=== PATIENT | female | born 1985 | race Caucasian/White ===

== ENCOUNTER → 2023-06-21 07:33 | Outpatient (REF) | payer OTHER, SELFPAY | LOC: PNTC 07:33 | PROVIDERS: ATTENDING PHYSICIAN Obstetrics & Gynecology | DX: O99.210 Obesity complicating pregnancy, unspecified trimester (principal); O09.529 Supervision of elderly multigravida, unspecified trimester | CPT/HCPCS: 76816 ==

== ENCOUNTER → 2023-07-13 11:25 | Outpatient (REF) | payer OTHER, SELFPAY | LOC: PNTC 11:25 | PROVIDERS: ATTENDING PHYSICIAN Obstetrics & Gynecology | DX: O99.210 Obesity complicating pregnancy, unspecified trimester (principal); O09.529 Supervision of elderly multigravida, unspecified trimester | CPT/HCPCS: 59025; 76815 ==

== ENCOUNTER → 2023-07-20 11:31 | Outpatient (REF) | payer OTHER, SELFPAY | LOC: PNTC 11:31 | PROVIDERS: ATTENDING PHYSICIAN Obstetrics & Gynecology | DX: O99.210 Obesity complicating pregnancy, unspecified trimester (principal); O09.529 Supervision of elderly multigravida, unspecified trimester | CPT/HCPCS: 59025; 76816 ==

== ENCOUNTER → 2023-07-27 11:26 | Outpatient (REF) | payer OTHER, SELFPAY | LOC: PNTC 11:26 | PROVIDERS: ATTENDING PHYSICIAN Obstetrics & Gynecology | DX: O09.529 Supervision of elderly multigravida, unspecified trimester (principal); O99.210 Obesity complicating pregnancy, unspecified trimester | CPT/HCPCS: 59025; 76815 ==

== ENCOUNTER → 2023-08-03 11:19 | Outpatient (REF) | payer OTHER, SELFPAY | LOC: PNTC 11:19 | PROVIDERS: ATTENDING PHYSICIAN Obstetrics & Gynecology | DX: O09.529 Supervision of elderly multigravida, unspecified trimester (principal); O99.210 Obesity complicating pregnancy, unspecified trimester | CPT/HCPCS: 59025; 76815 ==

== ENCOUNTER → 2023-08-10 11:42 | Outpatient (REF) | payer OTHER, SELFPAY | LOC: PNTC 11:42 | PROVIDERS: ATTENDING PHYSICIAN Obstetrics & Gynecology | DX: O99.210 Obesity complicating pregnancy, unspecified trimester (principal) | CPT/HCPCS: 59025; 76815 ==

== ENCOUNTER → 2023-08-17 11:35 | Outpatient (REF) | payer OTHER, SELFPAY | LOC: PNTC 11:35 | PROVIDERS: ATTENDING PHYSICIAN Obstetrics & Gynecology | DX: O09.529 Supervision of elderly multigravida, unspecified trimester (principal); O99.210 Obesity complicating pregnancy, unspecified trimester | CPT/HCPCS: 59025; 76816 ==

== ENCOUNTER → 2023-08-24 11:36 | Outpatient (REF) | payer OTHER, SELFPAY | LOC: PNTC 11:36 | PROVIDERS: ATTENDING PHYSICIAN Obstetrics & Gynecology | DX: O09.529 Supervision of elderly multigravida, unspecified trimester (principal); O99.210 Obesity complicating pregnancy, unspecified trimester | CPT/HCPCS: 59025; 76815 ==

== ENCOUNTER → 2023-08-31 11:37 | Outpatient (REF) | payer OTHER, SELFPAY | LOC: PNTC 11:37 | PROVIDERS: ATTENDING PHYSICIAN Obstetrics & Gynecology | DX: O99.210 Obesity complicating pregnancy, unspecified trimester (principal); O09.529 Supervision of elderly multigravida, unspecified trimester | CPT/HCPCS: 59025; 76815 ==

== ENCOUNTER 2023-09-06 17:42 | Observation (INO) | payer OTHER, SELFPAY ==
[2023-09-06 17:48] VITALS: BP 125/80; BMI 39.9
== END 2023-09-06 18:55 | disposition home or self-care (01) ==
LOC: LDRP 17:42
PROVIDERS: ADMITTING PHYSICIAN Obstetrics & Gynecology
DX: O36.8130 Decreased fetal movements, third trimester, not applicable or unspecified (principal); Z3A.40 40 weeks gestation of pregnancy; O48.0 Post-term pregnancy
CPT/HCPCS: 36415; 59025; 76815; 86850; 86900; 86901; G0378

== ENCOUNTER 2023-09-07 19:59 | Inpatient (IN) | payer OTHER, SELFPAY ==
[2023-09-07 20:27] VITALS: BP 134/76; BMI 39.9
[2023-09-07] MEDS: CYTOTEC 50 MICROGRAM VAG (21:21)
[2023-09-07 21:43] LABS: % Basophils 0.3 % (0-2); % Eosinophils 0.4 % (0-6); % Immature Granulocytes 1.4 % (0-0.5); % Lymphocytes 12.8 % (20.5-51.1); % Monocytes 4.6 % (1.7-9.3); % Neutrophils 80.5 % (42.2-75.2); Absolute Eosinophils 0.1 10^3/uL (0-0.7); Absolute Immature Granulocytes 0.2 10^3/uL (0-0.05); Absolute Monocytes 0.7 10^3/uL (0.1-0.6); Absolute Neutrophils 12.8 10^3/uL (1.4-6.5); Hematocrit 34.3 % (37.0-47.0); Mean Corpuscular Hgb 29.6 pg (27.0-31.0); Mean Corpuscular Volume 84.5 fL (81.0-99.0); Nucleated Red Blood Cells % 0 %; Platelet Count 232 10^3/uL (130-400); Red Blood Cell Count 4.06 10^6/uL (4.20-5.40); Red Cell Dist. Width 13.6 % (11.5-14.5); White Blood Cell Count 15.9 10^3/uL (4.8-10.8)
[2023-09-08] MEDS: CYTOTEC 25 MICROGRAM PO (01:15)
[2023-09-08] MEDS: SUBLIMAZE 100 MCG EPIDURAL (03:20)
[2023-09-08] MEDS: FENTANYL/BUPIVACAINE 100 EPIDURAL (03:21)
[2023-09-08] MEDS: MOTRIN 600 MG PO ×2 (14:07→22:05)
[2023-09-08] MEDS: TYLENOL 650 MG PO ×2 (14:50→19:58)
[2023-09-09 04:32] LABS: Hematocrit 31.3 % (37.0-47.0); Hemoglobin 10.7 g/dL (12.0-16.0)
[2023-09-09] MEDS: MOTRIN 600 MG PO ×2 (05:46→14:00)
[2023-09-09] MEDS: TYLENOL 650 MG PO ×2 (05:46→14:00)
[2023-09-09] MEDS: FEOSOL 325 MG PO (13:59)
[2023-09-12 14:34] LABS: Syphilis/T. pallidum Ab Reflex Negative (Negative)
== END 2023-09-09 14:59 | disposition home or self-care (01) | DRG 807 ==
LOC: LDRP 19:59
PROVIDERS: ADMITTING PHYSICIAN Obstetrics & Gynecology
PROC: 10E0XZZ Delivery of Products of Conception, External Approach (ICD-10-PCS; 2023-09-08)
PROC: 0KQM0ZZ Repair Perineum Muscle, Open Approach (ICD-10-PCS; 2023-09-08)
DX: O48.0 Post-term pregnancy (principal); Z37.0 Single live birth; Z3A.40 40 weeks gestation of pregnancy; O70.1 Second degree perineal laceration during delivery; Z87.442 Personal history of urinary calculi; Z87.820 Personal history of traumatic brain injury; O77.0 Labor and delivery complicated by meconium in amniotic fluid; O69.3XX0 Labor and delivery complicated by short cord, not applicable or unspecified
CPT/HCPCS: 88307; 85014; 85018; 85025; 86780; 86850; 86900; 86901